=== PATIENT | female | born 1980 | race Caucasian/White ===

== ENCOUNTER 2019-04-21 08:35 | Inpatient (IN) | payer BC ==
[~2019-04-21 08:35] MED LIST: Misoprostol 50 MCG (1/2 of 100 MCG) Tab VAG ONE
[2019-04-21] MEDS: Lactated Ringers 1,000 ML IV SCH ×2 (09:18→19:25)
[2019-04-21] MEDS ORDERED: Misoprostol 400 MCG (4 X 100 MCG TAB) RECTAL PRN (10:16)
[2019-04-21] MEDS ORDERED: Lidocaine 1% 30 ML SDV INJECT PRN (10:16)
[2019-04-21] MEDS ORDERED: Carboprost Tromethamine 250 MCG/1 ML Amp IM PRN (10:16)
[2019-04-21] MEDS ORDERED: Lactated Ringers 500 ML IV ONE (10:16)
[2019-04-21] MEDS ORDERED: Tranexamic Acid 1,000 MG in Sodium Chloride 0.9% 100 ML IV PRN (10:16)
[2019-04-21] MEDS ORDERED: Ondansetron 4 MG/2 ML SDV IV PRN (10:16)
[2019-04-21] MEDS ORDERED: Methylergonovine 0.2 MG/1 ML Amp IM PRN (10:16)
[2019-04-21] MEDS ORDERED: Sodium Chloride 0.9% 10 ML Syringe FLUSH PRN (10:16)
[2019-04-21] MEDS ORDERED: Misoprostol 50 MCG (1/2 of 100 MCG) Tab PO PRN (10:28)
[2019-04-21] MEDS ORDERED: Oxytocin/Normal Saline 30 UNIT/500 ML BAG IV SCH (10:30)
--- NOTE | 2019-04-21 10:37 | PCM.LDHP ---
L&D History of Present Illness - General Date of Service: 04/21/19 (Admit H&P) Admit Problem/Dx: Patient Status Order with Admit Dx/Problem 04/21/19 10:16 Patient Status [ADT] Routine Admission Diagnosis/Problem Admission Diagnosis/Problem Term 04/21/19 10:32 Senia is a delightful 38yo WF @ 39 weeks who presents today for induction as scheduled for her high risk . she is AMA, term, ripe cervix, GBS+, HSV positive and has hx of gestational thrombocytopenia, with PLT count currently 136. She is ready for induction today. All questions have been answered. baby active. having irregular contractions. no bleeding or LOF, but has lost her mucus plug. [facility] Source of Information: Patient, Family, Old Records, Provider, RN, Other ([facility] episode and prnenatal notes) History Limitations: Reports: No Limitations - History of Present Illness Introduction:: term , as noted above. ready for induction Timing/Duration: Reports: intermittent Location, : Reports: Uterus Severity: Mild Associated Symptoms: Reports: vaginal discharge - Related Data Allergies/Adverse Reactions: Allergies Allergy/AdvReac Type Severity Reaction Status Date / Time No Known Allergies Allergy Verified 03/30/16 09:34 Home Medications: Home Meds Vitamins 1 tab PO DAILY 05/24/15 [History] Docusate Sodium [Colace] 100 mg PO BID PRN #0 cap 08/31/16 [Rx] Acyclovir [Zovirax] 1,000 mg PO DAILY 04/21/19 [History] Tok-3/DHA/Epa/Fish Oil [Fish Oil 1,000 mg Softgel] 1 each PO DAILY 04/21/19 [ History] Past Medical History - Past Health History Medical/Surgical History: Denies Medical/Surgical History HEENT History: Reports: None Cardiovascular History: Reports: None Respiratory History: Reports: None Gastrointestinal History: Reports: None Genitourinary History: Reports: None IT APPLICATION ARCHITECT History: Reports: , Spontaneous , Therapeutic : 6 Para: 2 LMP (Approximate): Other OB/BYN History: herpes, treated with Acyclovir. history of abnormal pap ~ 2002 follow up was negative Musculoskeletal History: Reports: None Neurological History: Reports: None Psychiatric History: Reports: None Endocrine/Metabolic History: Reports: None Hematologic History: Reports: Anemia, Idiopathic Thrombocytopenia (with her pregnancies) Other Hematologic History: thrombocytopenia affecting Immunologic History: Reports: None Oncologic (Cancer) History: Reports: None Dermatologic History: Reports: None - Infectious Disease History Infectious Disease History: Reports: Chicken Pox, Herpes - Past Surgical History Head Surgeries/Procedures: Reports: None HEENT Surgical History: Reports: Oral Surgery GI Surgical History: Reports: Appendectomy Social & Family History - Family History Family Medical History: Noncontributory Cardiac: Reports: Afib (mother), AR (Maternal grandmother and grandfather) Oncologic: Reports: Bladder, Breast, Other (See Below) - Tobacco Use Smoking Status *Q: Never Smoker - Caffeine Use Caffeine Use: Reports: Coffee, Soda - Alcohol Use Alcohol Use History: No Alcohol Use in Last Twelve Months: No Alcohol Use Comment: not during - Recreational Drug Use Recreational Drug Use: No Drug Use in Last 12 Months: No - Sexual History Sexual History: Reports: Sexually Active, Single Partner - Living Situation & Occupation Living situation: Reports: , with Family Occupation: Other Social History Comment: , 2 sons, expecting boy H&P Review of Systems - Review of Systems: Review Of Systems: ROS reveals no pertinent complaints other than HPI. General: Reports: No Symptoms HEENT: Reports: No Symptoms Pulmonary: Reports: No Symptoms Cardiovascular: Reports: No Symptoms Gastrointestinal: Reports: No Symptoms Genitourinary: Reports: No Symptoms Musculoskeletal: Reports: No Symptoms Skin: Reports: No Symptoms Psychiatric: Reports: No Symptoms Neurological: Reports: No Symptoms Hematologic/Lymphatic: Reports: No Symptoms Immunologic: Reports: No Symptoms L&D Exam - Exam Exam: See Below - Vital Signs Vital Signs: Last Vital Signs Temp Pulse 69 04/21/19 09:14 Resp 16 04/21/19 09:05 BP 95/56 L 04/21/19 09:14 Pulse Ox Weight: 210 lb - OB Specific Fundal Height In cm: 40 (gravid, in clinic -2d) Contraction Duration (sec): 30-100 Contraction Frequency (min): Irregular Contraction Intensity: Mild Movement: Active Heart Tones: Present Heart Tones per Min: 150 Heart Rate (FHR) Variability: Moderate (6-25 bmp) Presentation: Vertex Estimated Weight: AGA - Blandon Score Blandon Score Cervix Position: Midposition Blandon Score Consistency: Soft Blandon Score Effacement: 31-50% Blandon Score Dilation: 3-4 cm Blandon Score Infant's Station: -3 Blandon Score Total: 6 - Exam General: Alert, Oriented HEENT: Conjunctiva Clear, EOMI, Hearing Intact, Mucosa Moist & Tower, Nares Patent, Posterior Pharynx Clear Neck: Supple Lungs: Clear to Auscultation, Normal Respiratory Effort Cardiovascular: Regular Rate, Regular Rhythm GI/Abdominal Exam: Normal Bowel Sounds, Soft, Non-Tender, Pelvis Stable Rectal Exam: Normal Exam, Normal Rectal Tone Genitourinary: Normal external exam, Cervical dilitation, Cervical discharge, Cervical lesions (no HSV lesions evident), Enlarged uterus, Vaginal discharge ( mucus plug) Back Exam: Normal Inspection, Full Range of Motion Extremities: Normal Inspection, Normal Range of Motion, Non-Tender, No Pedal Edema, Normal Capillary Refill Skin: Warm, Dry, Intact Neurological: Normal Speech Psychiatric: Alert, Normal Affect, Normal Mood - Patient Data Lab Results Last 24 hrs: Laboratory Results - last 24 hr 04/21/19 04/21/19 Range/Units 09:01 09:01 WBC 9.7 (5.0-10.0) 10^3/uL RBC 4.26 (4.2-5.4) 10^6/uL Hgb 13.5 D (12.0-16.0) g/dL Hct 39.1 (37.0-47.0) % MCV 91.8 (80-100) fL MCH 31.7 (27.0-34.0) pg MCHC 34.5 (33.0-35.0) g/dL Plt Count 136 L (150-450) 10^3/uL Blood Type A POSITIVE Gel Antibody Screen Negative Result Diagrams: 04/21/19 09:01 - Problem List (1) Term SNOMED Code(s): 16730202 ICD Code: Z34.90 - ENCNTR FOR SUPRVSN OF NORMAL , UNSP, UNSP TRIMESTER Status: Acute Current Visit: Yes (2) AMA (advanced maternal age) multigravida 35+ SNOMED Code(s): 848848309 ICD Code: O09.529 - SUPERVISION OF ELDERLY MULTIGRAVIDA, UNSPECIFIED TRIMESTER Status: Acute Current Visit: Yes (3) 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, antepartum SNOMED Code(s): 01050875, 230796463 ICD Code: O98.513 - OTHER VIRAL DISEASES COMPLICATING , THIRD TRIMESTER; B00.9 - HERPESVIRAL INFECTION, UNSPECIFIED Status: Acute Current Visit: Yes (4) Gestational thrombocytopenia without hemorrhage, antepartum SNOMED Code(s): 54740103 ICD Code: O99.119 - OTH DIS OF BLD/BLD-FORM ORG/IMMUN MECHNSM COMP PREG,UNSP TRI; D69.6 - THROMBOCYTOPENIA, UNSPECIFIED Status: Acute Current Visit: Yes (5) Group B streptococcal carriage complicating SNOMED Code(s): 948350062480585 ICD Code: O99.820 - STREPTOCOCCUS B CARRIER STATE COMPLICATING Status: Acute Current Visit: Yes (6) Blood type A+ SNOMED Code(s): 371743588 ICD Code: Z67.10 - TYPE A BLOOD, RH POSITIVE Status: Acute Current Visit : Yes (7) Rubella immune SNOMED Code(s): 373906003 ICD Code: Z78.9 - OTHER SPECIFIED HEALTH STATUS Status: Acute Current Visit: No Problem List Initiated/Reviewed/Updated: Yes Orders Last 24hrs: Active Orders 24 hr Category Date Time Status Patient Status [ADT] Routine ADT 04/21/19 10:16 Ordered Communication Order [RC] ASDIRECTED Care 04/21/19 10:16 Ordered Communication Order [RC] ASDIRECTED Care 04/21/19 10:28 Ordered Communication Order [RC] ASDIRECTED Care 04/21/19 10:28 Ordered Communication Order [RC] ASDIRECTED Care 04/21/19 10:28 Ordered Communication Order [RC] ASDIRECTED Care 04/21/19 10:28 Ordered Communication Order [RC] ASDIRECTED Care 04/21/19 10:28 Ordered Heart Rate [RC] Click to Edit Care 04/21/19 07:00 Active Heart Tones [RC] PER UNIT ROUTINE Care 04/21/19 10:16 Ordered Monitoring [RC] PER UNIT ROUTINE Care 04/21/19 10:28 Ordered Notify Provider Vital Signs OB [RC] ASDIRECTED Care 04/21/19 10:16 Ordered Notify Provider [RC] PRN Care 04/21/19 10:16 Ordered Notify Provider [RC] PRN Care 04/21/19 10:28 Ordered Notify Provider [RC] PRN Care 04/21/19 10:28 Ordered Notify Provider [RC] STAT Care 04/21/19 10:28 Ordered POC Labs [RC] ASDIRECTED Care 04/21/19 10:16 Ordered Pump Management, Intrathecal [RC] ASDIRECTED Care 04/21/19 10:28 Ordered Up ad Seda [RC] ASDIRECTED Care 04/21/19 10:16 Ordered Vaginal Exam [RC] PRN Care 04/21/19 10:28 Ordered Vital Signs [RC] PER UNIT ROUTINE Care 04/21/19 10:16 Ordered Regular Diet [DIET] Diet 04/21/19 Lunch Ordered Acetaminophen [Tylenol] Med 04/21/19 10:16 Ordered 650 mg PO Q4H PRN Carboprost Tromethamine [Hemabate DS] Med 04/21/19 10:16 Ordered 250 mcg IM ASDIRECTED PRN Lactated Ringers [Ringers, Lactated] 1,000 ml Med 04/21/19 09:00 Active IV ASDIRECTED Lactated Ringers [Ringers, Lactated] 500 ml Med 04/21/19 10:16 Ordered IV .BOLUS Lidocaine 1% [Xylocaine-MPF 1%] Med 04/21/19 10:16 Ordered 30 ml INJECT ASDIRECTED PRN Methylergonovine [Methergine] Med 04/21/19 10:16 Ordered 0.2 mg IM ASDIRECTED PRN Ondansetron [Zofran] Med 04/21/19 10:16 Ordered 4 mg IV Q4H PRN Oxytocin 30 Units in NS @ 2 MUNITS/MIN(500ml) Med 04/21/19 10:30 Ordered Oxytocin/Normal Saline [Pitocin in NS 30 UNIT/500 ML] 30 unit in 500 ml IV TITRATE Penicillin G Potassium [Pfizerpen] 2.5 millunits Med 04/21/19 14:00 Ordered Sodium Chloride 0.9% [Normal Saline] 100 ml IV Q4HR Penicillin G Potassium [Pfizerpen] 5 millunits Med 04/21/19 10:16 Ordered Sodium Chloride 0.9% [Normal Saline] 100 ml IV ONETIME Sodium Chloride 0.9% [Saline Flush] Med 04/21/19 10:16 Ordered 10 ml FLUSH ASDIRECTED PRN Tranexamic Acid [Cyklokapron] 1,000 mg Med 04/21/19 10:16 Ordered Sodium Chloride 0.9% [Normal Saline] 100 ml IV ONETIME miSOPROStol [Cytotec] Med 04/21/19 10:28 Ordered 50 mcg PO Q4H PRN miSOPROStol [Cytotec] Med 04/21/19 10:16 Ordered 800 mcg RECTAL ASDIRECTED PRN EFM External [ Heart Monitor External] [WOMSER] Oth 04/21/19 06:58 Ordered Routine Saline Lock Insert [OM.PC] Routine Oth 04/21/19 10:16 Ordered Resuscitation Status Routine Resus Stat 04/21/19 10:16 Ordered Medication Orders Acetaminophen (Tylenol) 650 mg PO Q4H PRN PRN Reason: Pain (Mild 1-3) and fever Carboprost Tromethamine (Hemabate Ds) 250 mcg IM ASDIRECTED PRN PRN Reason: HEMORRHAGE Lactated Ringer's (Ringers, Lactated) 1,000 mls @ 125 mls/hr IV ASDIRECTED ED Last Admin: 04/21/19 09:18 Dose: 125 mls/hr Lactated Ringer's (Ringers, Lactated) 500 mls @ 500 mls/hr IV .BOLUS ONE Stop: 04/21/19 11:15 Oxytocin/Sodium Chloride (Pitocin In Ns 30 Unit/500 Ml) 30 unit in 500 mls @ 2 mls/hr IV TITRATE ED; Protocol Penicillin G Potassium 5 (millunits/ Sodium Chloride) 100 mls @ 200 mls/hr IV ONETIME ONE Stop: 04/21/19 11:14 Penicillin G Potassium 2.5 (millunits/ Sodium Chloride) 100 mls @ 200 mls/hr IV Q4H ED Tranexamic Acid 1,000 mg/ (Sodium Chloride) 110 mls @ 660 mls/hr IV ONETIME PRN PRN Reason: Bleeding Lidocaine HCl (Xylocaine-Mpf 1%) 30 ml INJECT ASDIRECTED PRN PRN Reason: Perineal Repair Methylergonovine Maleate (Methergine) 0.2 mg IM ASDIRECTED PRN PRN Reason: Hemorrhage Misoprostol (Cytotec) 800 mcg RECTAL ASDIRECTED PRN PRN Reason: Hemorrhage Ondansetron HCl (Zofran) 4 mg IV Q4H PRN PRN Reason: Nausea/Vomiting Sodium Chloride (Saline Flush) 10 ml FLUSH ASDIRECTED PRN PRN Reason: Keep Vein Open Assessment/Plan Comment:: Assessment: 38yo WF @ 39 weeks gestation high risk AMA gestational thrombocytopenia with PLT 136K on admit Hx HSV on Valtrex prophylaxis Blood type A+ Rubella immune GBS + NST reactive cervix ripe Plan: Proceed with induction as planned. cytotec 50mcg placed pv without difficulty PCN prophylaxis for GBS continue to monitor closely will consider repeat cytotec, Pitocin infusion/augmentation or/and AROM when appropriate. all questions answered. further management pending her clinical course and response to treatment. couple happy with plan and care. donnie
[2019-04-21] MEDS ORDERED: Penicillin G Potassium 5 MILLUNITS in Sodium Chloride 0.9% 100 ML IV ONE (10:45)
[2019-04-21] MEDS: Penicillin G Potassium 2.5 MILLUNITS in Sodium Chloride 0.9% 100 ML IV SCH ×2 (15:01→18:49)
--- NOTE | 2019-04-21 19:01 | PCM.SN ---
- Free Text/Narrative Note: DOS: [id number] cxns feeling stronger to her no bleeding or LOF Pitocin @ 4 tracings reassuring VSS Afebrile cervix 5cm, vertex well applied with cxn a large bulging bag of fluid is noted AROM carried out with return of large amount of clear fluid some discomfort in back also. Will continue to closely monitor. planning intrathecal. all questions answered. hmb
[2019-04-21] MEDS ORDERED: fentaNYL 100 MCG/2 ML SDV ONE (19:27)
[2019-04-21] MEDS ORDERED: EPINEPHrine 1 MG/1 ML Amp ONE (19:27)
--- NOTE | 2019-04-21 19:59 | PCM.PRNOTE ---
- Free Text/Narrative Note: Requested to provide analgesia to full term patient in severe pain. Upon entering the room, patient is sitting on edge of bed complaining of severe abdominal/pelvic pain and discomfort. Procedure was discussed with patient including adverse outcomes and expectations. Pt consented to analgesia, SAB/ IT. Pt placed into a proper sitting position. Landmarks for SAB/IT were identified and marked. Hands were washed and appropriate PPE was applied. Back was prepped with betadine x3. A sterile, transparent, fenestrated drape was applied. Excess betadine was removed. Using 3 mL of a 1% lidocaine solution , a skin wheel was placed at the L2/L3 interspace. A 24 ga (4 inch) Pencan spinal needle was inserted until positive for CSF. Negative for heme or paresthesias. Injected fentanyl 30 mcg, sufentanil 25 mcg, and 7.5 mg of a 0.75 % bupivacaine solution with an epi wash. Pt was placed left lateral position for approximately 20 minutes. There were zero complications or adverse outcomes. Will continue to monitor. Procedure Date & Time: 04-21-2019
[2019-04-21] MEDS ORDERED: Benzocaine/Menthol 20%-0.5% Spray 56 GM Canister TOP PRN (20:52)
[2019-04-21] MEDS ORDERED: Simethicone 80 MG Tab.Chew PO PRN (20:52)
[2019-04-21] MEDS ORDERED: Zolpidem 5 MG Tab PO PRN (20:52)
--- NOTE | 2019-04-21 21:01 | PCM.DEL ---
L & D Note - General Info Date of Service: 04/21/19 (time of delivery 2013) Mother's Due Date: 04/28/19 (39w0d) - Delivery Note Labor: Augmented by ARM, Augmented by Oxytocin Cervical Ripening Method: Misoprostil Delivery Outcome: Livebirth Infant Delivery Method: Spontaneous Vaginal Delivery-Single Infant Delivery Mode: Spontaneous Presentation: Right Occiput Anterior (BORA) Nuchal Cord: None Prep: Povidone-Iodine (Betadine Anesthesia Type: Intrathecal Amniotic Fluid Description: Clear Episiotomy Type: None Laceration: None Placenta: Intact, Expressed Cord: 3 Vessels Estimated Blood Loss: 200 Resuscitation Needed: No Challenge: Suctioned, Bulb Syringe, Stimulated, Warmed Provider: Tatum Foreman Score 1 min: 9 Score 5 min: 9 Delivery Comments (Free Text/Narrative):: viable male infant delivered in BORA position with mother pushing through one contraction over intact perineum while watching in the mirror, feet in foot supports with excellent block from her intrathecal. baby was suctioned and placed immediately onto mother's chest for skin to skin contact. cord doubly clamped, then cut by mother. 3VC, cord blood obtained. placenta delivered intact/complete. perineum intact. fundus firmed up nicely with pitocin infusion and fundal massage. EBL <200cc. baby and mother doing well. . APGARs 9 & 9 weight 3850g/8lb 8oz hmb Induction Criteria - Induction Gestational Age >/= 39 wks: Yes Estimated Pelvis: Reports: Adequate Reassuring Monitoring Strip: Yes Absence of Tachy Systole: Yes - Augmentation Estimated Pelvis: Reports: Adequate Weight Estimated:: Reports: AGA Reassuring Monitoring Strip: Yes Absence of Tachy Systole: Yes - General Info Date of Service: 04/21/19 - Patient Data Vitals - Most Recent: Last Vital Signs Temp 97.4 F 04/21/19 17:54 Pulse 70 04/21/19 18:14 Resp 16 04/21/19 18:14 BP 116/64 04/21/19 18:14 Pulse Ox Weight - Most Recent: 210 lb I&O - Last 24 Hours: Intake & Output 04/21/19 04/21/19 04/21/19 06:59 14:59 22:59 Intake Total 1140 100 Balance 1140 100 Lab Results Last 24 Hours: Laboratory Results - last 24 hr 04/21/19 04/21/19 Range/Units 09:01 09:01 WBC 9.7 (5.0-10.0) 10^3/uL RBC 4.26 (4.2-5.4) 10^6/uL Hgb 13.5 D (12.0-16.0) g/dL Hct 39.1 (37.0-47.0) % MCV 91.8 (80-100) fL MCH 31.7 (27.0-34.0) pg MCHC 34.5 (33.0-35.0) g/dL Plt Count 136 L (150-450) 10^3/uL Blood Type A POSITIVE Gel Antibody Screen Negative Med Orders - Current: Current Medications Acetaminophen (Tylenol) 650 mg PO Q4H PRN PRN Reason: Pain (Mild 1-3) and fever Carboprost Tromethamine (Hemabate Ds) 250 mcg IM ASDIRECTED PRN PRN Reason: HEMORRHAGE Lactated Ringer's (Ringers, Lactated) 1,000 mls @ 125 mls/hr IV ASDIRECTED ED Last Admin: 04/21/19 19:25 Dose: 999 mls/hr Oxytocin/Sodium Chloride (Pitocin In Ns 30 Unit/500 Ml) 30 unit in 500 mls @ 2 mls/hr IV TITRATE [facility]; Protocol Last Titration: 04/21/19 18:46 Dose: 4 munits/min, 4 mls/hr Penicillin G Potassium 2.5 (millunits/ Sodium Chloride) 100 mls @ 200 mls/hr IV Q4H [facility] Last Infusion: 04/21/19 19:30 Dose: Infused Tranexamic Acid 1,000 mg/ (Sodium Chloride) 110 mls @ 660 mls/hr IV ONETIME PRN PRN Reason: Bleeding Lidocaine HCl (Xylocaine-Mpf 1%) 30 ml INJECT ASDIRECTED PRN PRN Reason: Perineal Repair Methylergonovine Maleate (Methergine) 0.2 mg IM ASDIRECTED PRN PRN Reason: Hemorrhage Misoprostol (Cytotec) 800 mcg RECTAL ASDIRECTED PRN PRN Reason: Hemorrhage Misoprostol (Cytotec) 50 mcg PO Q4H PRN PRN Reason: cervical ripening Last Admin: 04/21/19 14:09 Dose: 50 mcg Ondansetron HCl (Zofran) 4 mg IV Q4H PRN PRN Reason: Nausea/Vomiting Last Admin: 04/21/19 19:28 Dose: 4 mg Sodium Chloride (Saline Flush) 10 ml FLUSH ASDIRECTED PRN PRN Reason: Keep Vein Open Discontinued Medications Epinephrine HCl (Adrenalin) Confirm Administered Dose 1 mg .ROUTE .STK-MED ONE Stop: 04/21/19 19:28 Last Admin: 04/21/19 19:31 Dose: Not Given Fentanyl (Sublimaze) Confirm Administered Dose 100 mcg .ROUTE .STK-MED ONE Stop: 04/21/19 19:28 Last Admin: 04/21/19 19:31 Dose: Not Given Lactated Ringer's (Ringers, Lactated) 500 mls @ 500 mls/hr IV .BOLUS ONE Stop: 04/21/19 11:15 Last Admin: 04/21/19 19:31 Dose: Not Given Penicillin G Potassium 5 (millunits/ Sodium Chloride) 100 mls @ 200 mls/hr IV ONETIME ONE Stop: 04/21/19 11:14 Last Admin: 04/21/19 10:43 Dose: 200 mls/hr Misoprostol (Cytotec) 50 mcg VAG ONETIME ONE Stop: 04/21/19 07:01 Last Admin: 04/21/19 10:10 Dose: 50 mcg Sufentanil Citrate (Sufenta) Confirm Administered Dose 50 mcg .ROUTE .STK-MED ONE Stop: 04/21/19 19:29 Last Admin: 04/21/19 19:31 Dose: Not Given - Problem List & Annotations (1) Term SNOMED Code(s): 21017682 Code(s): Z34.90 - ENCNTR FOR SUPRVSN OF NORMAL , UNSP, UNSP TRIMESTER Status: Acute Current Visit: Yes (2) AMA (advanced maternal age) multigravida 35+ SNOMED Code(s): 636971993 Code(s): O09.529 - SUPERVISION OF ELDERLY MULTIGRAVIDA, UNSPECIFIED TRIMESTER Status: Acute Current Visit: Yes (3) 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, antepartum SNOMED Code(s): 00042383, 771124889 Code(s): O98.513 - OTHER VIRAL DISEASES COMPLICATING , THIRD TRIMESTER; B00.9 - HERPESVIRAL INFECTION, UNSPECIFIED Status: Acute Current Visit: Yes (4) Gestational thrombocytopenia without hemorrhage, antepartum SNOMED Code(s): 45494801 Code(s): O99.119 - OTH DIS OF BLD/BLD-FORM ORG/IMMUN MECHNSM COMP PREG,UNSP TRI; D69.6 - THROMBOCYTOPENIA, UNSPECIFIED Status: Acute Current Visit: Yes (5) Group B streptococcal carriage complicating SNOMED Code(s): 194033017531506 Code(s): O99.820 - STREPTOCOCCUS B CARRIER STATE COMPLICATING Status: Acute Current Visit: Yes (6) Blood type A+ SNOMED Code(s): 692119180 Code(s): Z67.10 - TYPE A BLOOD, RH POSITIVE Status: Acute Current Visit: Yes (7) Rubella immune SNOMED Code(s): 482546848 Code(s): Z78.9 - OTHER SPECIFIED HEALTH STATUS Status: Acute Current Visit: No (8) Mother currently breast-feeding SNOMED Code(s): 914509786 Code(s): ZWD2038 - Status: Acute Current Visit: Yes - Problem List Review Problem List Initiated/Reviewed/Updated: Yes - My Orders Last 24 Hours: My Active Orders 04/21/19 06:58 EFM External [ Heart Monitor External] [WOMSER] Routine 04/21/19 07:00 Heart Rate [RC] Click to Edit 04/21/19 09:00 Lactated Ringers [Ringers, Lactated] 1,000 ml IV ASDIRECTED 04/21/19 10:16 Patient Status [ADT] Routine Communication Order [RC] ASDIRECTED Notify Provider Vital Signs OB [RC] ASDIRECTED Notify Provider [RC] PRN POC Labs [RC] ASDIRECTED Up ad Seda [RC] ASDIRECTED Vital Signs [RC] PER UNIT ROUTINE Acetaminophen [Tylenol] 650 mg PO Q4H PRN Carboprost Tromethamine [Hemabate DS] 250 mcg IM ASDIRECTED PRN Lidocaine 1% [Xylocaine-MPF 1%] 30 ml INJECT ASDIRECTED PRN Methylergonovine [Methergine] 0.2 mg IM ASDIRECTED PRN Ondansetron [Zofran] 4 mg IV Q4H PRN Sodium Chloride 0.9% [Saline Flush] 10 ml FLUSH ASDIRECTED PRN Tranexamic Acid [Cyklokapron] 1,000 mg Sodium Chloride 0.9% [Normal Saline] 100 ml IV ONETIME miSOPROStol [Cytotec] 800 mcg RECTAL ASDIRECTED PRN Saline Lock Insert [OM.PC] Routine Resuscitation Status Routine 04/21/19 10:28 Communication Order [RC] ASDIRECTED Communication Order [RC] ASDIRECTED Communication Order [RC] ASDIRECTED Communication Order [RC] ASDIRECTED Communication Order [RC] ASDIRECTED Notify Provider [RC] PRN Notify Provider [RC] PRN Notify Provider [RC] STAT Pump Management, Intrathecal [RC] ASDIRECTED Vaginal Exam [RC] PRN miSOPROStol [Cytotec] 50 mcg PO Q4H PRN 04/21/19 10:30 Oxytocin/Normal Saline [Pitocin in NS 30 UNIT/500 ML] 30 unit in 500 ml IV TITRATE 04/21/19 15:00 Penicillin G Potassium [Pfizerpen] 2.5 millunits Sodium Chloride 0.9% [Normal Saline] 100 ml IV Q4H 04/21/19 19:00 Communication Order [RC] ROUTINE 04/21/19 20:52 Benzocaine/Menthol [Dermoplast Pain Relief [place]] See Dose Instructions TOP Q4H PRN Docusate Sodium [Colace] 100 mg PO BID PRN Ibuprofen [Motrin] 800 mg PO Q8H PRN Simethicone 80 mg PO Q4H PRN Zolpidem [Ambien] 5 mg PO BEDTIME PRN 04/21/19 20:53 Assess Lochia [WOMSER] Per Unit Routine Assess Uterine Involution [WOMSER] Per Unit Routine Breast Pump [WOMSER] Per Unit Routine Ice Therapy [OM.PC] Per Unit Routine Perineal Care [OM.PC] Per Unit Routine Sitz Bath [OM.PC] Per Unit Routine 04/21/19 Lunch Regular Diet [DIET] 04/22/19 09:00 Vit with Ca/FA/Iron [ Plus Iron] 1 each PO DAILY 04/23/19 05:11 CBC W/O DIFF,HEMOGRAM [HEME] AM - Plan Plan:: Assessment: 38yo WF @ 39 weeks gestation high risk AMA gestational thrombocytopenia with PLT 136K on admit Hx HSV on Valtrex prophylaxis Blood type A+ Rubella immune GBS + NST reactive cervix ripe Plan: Proceed with induction as planned. cytotec 50mcg placed pv without difficulty PCN prophylaxis for GBS continue to monitor closely will consider repeat cytotec, Pitocin infusion/augmentation or/and AROM when appropriate. all questions answered. further management pending her clinical course and response to treatment. couple happy with plan and care. b DOS: 04-21-19 delivery note as noted 2013 vag delivery over intact perineum viable male 8lb 8oz/3850g APGARs 9 & 9 see delivery note for details. hmb
[2019-04-21] MEDS: Docusate Sodium 100 MG Cap PO PRN (22:05)
[2019-04-22] MEDS: Penicillin G Potassium 2.5 MILLUNITS in Sodium Chloride 0.9% 100 ML IV SCH (03:25)
[2019-04-22] MEDS: Ibuprofen 800 MG Tab PO PRN ×2 (06:20→14:38)
[2019-04-22] MEDS: Acetaminophen 325 MG Tab PO PRN (07:21)
[2019-04-22] MEDS: Prenatal Multivitamin with Calcium/Folic Acid/Iron Tab PO SCH (09:34)
[2019-04-22] MEDS: Docusate Sodium 100 MG Cap PO PRN ×2 (09:34→21:10)
--- NOTE | 2019-04-22 11:23 | PCM.SN ---
- Free Text/Narrative Note: DOS: 04-22-19 PPD #1 doing well s/p vaginal delivery last night. . feels well. no complaints. VSS afebrile fundus firm continue current cares. likely home tomorrow. all questions answered. happy with care and plan. hmb
[2019-04-23] MEDS: Ibuprofen 800 MG Tab PO PRN (06:05)
[2019-04-23] MEDS: Acetaminophen 325 MG Tab PO PRN (09:17)
[2019-04-23] MEDS: Docusate Sodium 100 MG Cap PO PRN (09:44)
[2019-04-23] MEDS: Prenatal Multivitamin with Calcium/Folic Acid/Iron Tab PO SCH (09:44)
--- NOTE | 2019-04-23 10:49 | PCM.DCSUM1 ---
Discharge Summary - Hospital Course Diagnosis: Stroke: No - Discharge Data Discharge Disposition: Home, Self-Care 01 Condition: Good - Referral to Home Health Primary Care Physician: Tatum Foreman MD - Discharge Diagnosis/Problem(s) (1) Rubella immune SNOMED Code(s): 700969211 ICD Code: Z78.9 - OTHER SPECIFIED HEALTH STATUS Status: Acute Current Visit: No (2) Term SNOMED Code(s): 97224854 ICD Code: Z34.90 - ENCNTR FOR SUPRVSN OF NORMAL , UNSP, UNSP TRIMESTER Status: Acute Current Visit: Yes (3) AMA (advanced maternal age) multigravida 35+ SNOMED Code(s): 972331840 ICD Code: O09.529 - SUPERVISION OF ELDERLY MULTIGRAVIDA, UNSPECIFIED TRIMESTER Status: Acute Current Visit: Yes (4) 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, antepartum SNOMED Code(s): 10011017, 352417333 ICD Code: O98.513 - OTHER VIRAL DISEASES COMPLICATING , THIRD TRIMESTER; B00.9 - HERPESVIRAL INFECTION, UNSPECIFIED Status: Acute Current Visit: Yes (5) Gestational thrombocytopenia without hemorrhage, antepartum SNOMED Code(s): 76719648 ICD Code: O99.119 - OTH DIS OF BLD/BLD-FORM ORG/IMMUN MECHNSM COMP PREG,UNSP TRI; D69.6 - THROMBOCYTOPENIA, UNSPECIFIED Status: Acute Current Visit: Yes (6) Group B streptococcal carriage complicating SNOMED Code(s): 346274025786494 ICD Code: O99.820 - STREPTOCOCCUS B CARRIER STATE COMPLICATING Status: Acute Current Visit: Yes (7) Blood type A+ SNOMED Code(s): 734451750 ICD Code: Z67.10 - TYPE A BLOOD, RH POSITIVE Status: Acute Current Visit : Yes (8) Mother currently breast-feeding SNOMED Code(s): 148235279 ICD Code: MAU3650 - Status: Acute Current Visit: Yes - Discharge Plan *PRESCRIPTION DRUG MONITORING PROGRAM REVIEWED*: Not Applicable *COPY OF PRESCRIPTION DRUG MONITORING REPORT IN PATIENT ANGIE: Not Applicable (6 week check) Home Medications: Home Meds Acyclovir 09/08/13 [History] Vitamins 1 tab PO DAILY 05/24/15 [History] Docusate Sodium [Colace] 100 mg PO BID PRN #0 cap 08/31/16 [Rx] Acyclovir [Zovirax] 1,000 mg PO DAILY 04/21/19 [History] [place]-3/DHA/Epa/Fish Oil [Fish Oil 1,000 mg Softgel] 1 each PO DAILY 04/21/19 [ History] - Patient Data Vitals - Most Recent: Last Vital Signs Temp 97.9 F 04/23/19 08:00 Pulse 60 04/23/19 08:00 Resp 16 04/23/19 08:00 BP 122/75 04/23/19 08:00 Pulse Ox 99 04/23/19 08:00 Weight - Most Recent: 210 lb I&O - Last 24 hours: Intake & Output 04/22/19 04/23/19 04/23/19 22:59 06:59 14:59 Intake Total 520 Balance 520 Lab Results - Last 24 hrs: Laboratory Results - last 24 hr 04/23/19 Range/Units 07:45 WBC 8.6 (5.0-10.0) 10^3/uL RBC 4.19 L (4.2-5.4) 10^6/uL Hgb 13.2 (12.0-16.0) g/dL Hct 39.0 (37.0-47.0) % MCV 93.1 (80-100) fL MCH 31.5 (27.0-34.0) pg MCHC 33.8 (33.0-35.0) g/dL Plt Count 137 L (150-450) 10^3/uL Med Orders - Current: Current Medications Acetaminophen (Tylenol) 650 mg PO Q4H PRN PRN Reason: Pain (Mild 1-3) and fever Last Admin: 04/23/19 09:17 Dose: 650 mg Benzocaine/Menthol (Dermoplast Pain Relief Carbon) 0 gm TOP Q4H PRN PRN Reason: Perineal comfort measures Last Admin: 04/22/19 00:34 Dose: 1 spray Carboprost Tromethamine (Hemabate Ds) 250 mcg IM ASDIRECTED PRN PRN Reason: HEMORRHAGE Docusate Sodium (Colace) 100 mg PO BID PRN PRN Reason: Constipation Last Admin: 11/01/19 09:44 Dose: 100 mg Lactated Ringer's (Ringers, Lactated) 1,000 mls @ 125 mls/hr IV ASDIRECTED ED Last Admin: 04/21/19 19:25 Dose: 999 mls/hr Oxytocin/Sodium Chloride (Pitocin In Ns 30 Unit/500 Ml) 30 unit in 500 mls @ 2 mls/hr IV TITRATE DE; Protocol Last Titration: 04/21/19 23:00 Dose: 0 mls/hr Tranexamic Acid 1,000 mg/ (Sodium Chloride) 110 mls @ 660 mls/hr IV ONETIME PRN PRN Reason: Bleeding Ibuprofen (Motrin) 800 mg PO Q8H PRN PRN Reason: Mild Pain or Fever Last Admin: 04/23/19 06:05 Dose: 800 mg Lidocaine HCl (Xylocaine-Mpf 1%) 30 ml INJECT ASDIRECTED PRN PRN Reason: Perineal Repair Methylergonovine Maleate (Methergine) 0.2 mg IM ASDIRECTED PRN PRN Reason: Hemorrhage Misoprostol (Cytotec) 800 mcg RECTAL ASDIRECTED PRN PRN Reason: Hemorrhage Misoprostol (Cytotec) 50 mcg PO Q4H PRN PRN Reason: cervical ripening Last Admin: 04/21/19 14:09 Dose: 50 mcg Ondansetron HCl (Zofran) 4 mg IV Q4H PRN PRN Reason: Nausea/Vomiting Last Admin: 04/21/19 19:28 Dose: 4 mg Prenat Multivit/[place]/Iron/Folic Ac ( Plus Iron) 1 each PO DAILY ED Last Admin: 04/23/19 09:44 Dose: 1 each Simethicone (Simethicone) 80 mg PO Q4H PRN PRN Reason: Gas Sodium Chloride (Saline Flush) 10 ml FLUSH ASDIRECTED PRN PRN Reason: Keep Vein Open Zolpidem Tartrate (Ambien) 5 mg PO BEDTIME PRN PRN Reason: Insomnia Discontinued Medications Epinephrine HCl (Adrenalin) Confirm Administered Dose 1 mg .ROUTE .STK-MED ONE Stop: 04/21/19 19:28 Last Admin: 04/21/19 19:31 Dose: Not Given Fentanyl (Sublimaze) Confirm Administered Dose 100 mcg .ROUTE .STK-MED ONE Stop: 04/21/19 19:28 Last Admin: 04/21/19 19:31 Dose: Not Given Lactated Ringer's (Ringers, Lactated) 500 mls @ 500 mls/hr IV .BOLUS ONE Stop: 04/21/19 11:15 Last Admin: 04/21/19 19:31 Dose: Not Given Penicillin G Potassium 5 (millunits/ Sodium Chloride) 100 mls @ 200 mls/hr IV ONETIME ONE Stop: 04/21/19 11:14 Last Admin: 04/21/19 10:43 Dose: 200 mls/hr Penicillin G Potassium 2.5 (millunits/ Sodium Chloride) 100 mls @ 200 mls/hr IV Q4H ED Last Admin: 04/22/19 03:25 Dose: Not Given Misoprostol (Cytotec) 50 mcg VAG ONETIME ONE Stop: 04/21/19 07:01 Last Admin: 04/21/19 10:10 Dose: 50 mcg Sufentanil Citrate (Sufenta) Confirm Administered Dose 50 mcg .ROUTE .STK-MED ONE Stop: 04/21/19 19:29 Last Admin: 04/21/19 19:31 Dose: Not Given
[2019-04-23] MEDS ORDERED: EPINEPHrine 1 MG/1 ML Amp ONE (12:04)
[2019-04-23] MEDS ORDERED: fentaNYL 100 MCG/2 ML SDV ITHECAL ONE (12:04)
== END 2019-04-23 12:05 | disposition home or self-care (01) | DRG 560 ==
LOC: DL.OBCHECK 08:35 → DL.OB 10:16 → MERGE 20:14 → DL.OB 20:14 → OBSVTOIN 20:14
PROVIDERS: ADMIT Family Medicine; ATTEND Family Medicine
PROC: 10E0XZZ Delivery of Products of Conception, External Approach (ICD-10-PCS; principal; 2019-04-21)
PROC: 3E0P7VZ Introduction of Hormone into Female Reproductive, Via Natural or Artificial Opening (ICD-10-PCS; 2019-04-21)
PROC: 10907ZC Drainage of Amniotic Fluid, Therapeutic from Products of Conception, Via Natural or Artificial Opening (ICD-10-PCS; 2019-04-21)
DX: O98.52 Other viral diseases complicating childbirth (principal); O99.824 Streptococcus B carrier state complicating childbirth; B00.9 Herpesviral infection, unspecified; O99.12 Other diseases of the blood and blood-forming organs and certain disorders involving the immune mechanism complicating childbirth; Z3A.39 39 weeks gestation of pregnancy; Z37.0 Single live birth
CPT/HCPCS: 36415; 59409; 85027; 86850; 86900; 86901; A9270-GY; J0171; J2405; J2540; J2590; J3010; J7050; J7120